=== PATIENT | female | born 1965 | race Two or more races ===

== ENCOUNTER 2016-11-08 13:51 | Emergency (ER) | payer OTHER ==
[~2016-11-08] VITALS: Ht 167.6 cm; Wt 78.0 kg
[2016-11-08] MEDS: MECLIZINE 25 MG TABLET PO ONE (14:13)
[2016-11-08 14:33] LABS: BASO % 1 % (0-3); EOS # 0.2 x10^3/uL (0.0-0.7); EOS % 3 % (0-3); HEMATOCRIT 45.4 % (36.0-47.0); HEMOGLOBIN 15.3 g/dL (12.0-15.5); LYMPH # 2.2 x10^3/uL (1.0-4.8); LYMPH % 33 % (24-48); MEAN CORPUSCULAR HEMOGLOBIN 30 pg (25-35); MEAN CORPUSCULAR HGB CONC 34 g/dL (31-37); MEAN CORPUSCULAR VOLUME 90 fL (79-100); MONO # 0.5 x10^3/uL (0.0-1.1); MONO % 7 % (0-9); NEUT # 3.8 x10^3uL (1.8-7.7); NEUT % 57 % (31-73); PLATELET COUNT 149 x10^3/uL (140-400); RED BLOOD COUNT 5.06 x10^6/uL (3.50-5.40); RED CELL DISTRIBUTION WIDTH 13.6 % (11.5-14.5); WHITE BLOOD COUNT 6.7 x10^3/uL (4.0-11.0)
[2016-11-08 14:46] LABS: ALBUMIN 4.1 g/dL (3.4-5.0); CREATININE 0.7 mg/dL (0.6-1.0); GFR 88.9; POTASSIUM 3.5 mmol/L (3.5-5.1); TOTAL BILIRUBIN 0.5 mg/dL (0.2-1.0); TOTAL PROTEIN 8.1 g/dL (6.4-8.2)
--- NOTE | 2016-11-08 14:46 | RAD ---
EXAM: Head CT without contrast. HISTORY: Dizziness. TECHNIQUE: Computed tomographic images of the head were obtained without contrast. COMPARISON: None. FINDINGS: There is no acute or subacute extra-axial or intraparenchymal hemorrhage. There is no mass effect or midline shift. There is no hydrocephalus. The sanchez-white matter differentiation pattern is intact. The visualized portions of the orbits, paranasal sinuses and mastoid air cells are unremarkable. No suspicious calvarial lesion is seen. IMPRESSION: No acute intracranial findings. PQRS Compliance Statement: One or more of the following individualized dose reduction techniques were utilized for this examination: 1. Automated exposure control 2. Adjustment of the mA and/or kV according to patient size 3. Use of iterative reconstruction technique
[2016-11-08] MEDS: LORAZEPAM 1 MG TABLET. PO ONE (15:00)
--- NOTE | 2016-11-08 15:19 | EKG ---
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
[2016-11-08 15:50] VITALS: BP 136/79
--- NOTE | 2016-11-08 16:09 | ED.ADGEN ---
Past History Past Medical History: Hypertension Past Surgical History: Alcohol Use: Rarely Drug Use: None Adult General Chief Complaint Chief Complaint Dizziness, bradycardia HPI HPI Patient is a 42-year-old female presents with dizziness described as room spinning running yesterday afternoon. Symptoms started probably and worse with position change and movement. There so she had with nausea, and ataxia. Patient denies walking to one side. Denies vomiting. Has had intermittent headaches times one week. No sinus pain, congestion, ear fullness, tinnitus or neck pain. Denies palpitations, shortness of breath and chest pain. No extremity weakness or loss of sensation. No medications. Patient was seen at PCPs office prior to ED arrival and was referred to the ED due to concern of bradycardia. Patient with office EKG with heart rate in the mid 40s. Patient is on blood pressure medication, but is not on negative chronotropic medications.. Review of Systems Review of Systems Review of symptoms as per history of present illness. All other review of symptoms negative. Current Medications Current Medications Current Medications Medications (Trade) Dose Ordered Sig/Bassam Start Time Stop Time Status Last Admin Dose Admin Lorazepam (Ativan) 1 mg 1X ONCE 11/08/16 15:00 11/08/16 15:01 DC 11/08/16 15:00 1 MG Meclizine HCl (Antivert) 50 mg 1X ONCE 11/08/16 14:30 11/08/16 14:32 DC 11/08/16 14:13 50 MG Allergies Allergies Allergies Coded Allergies Type Severity Reaction Last Updated Verified No Known Drug Allergies 11/08/16 No Physical Exam Physical Exam Constitutional: Well developed, well nourished, no acute distress, non-toxic appearance. HENT: Normocephalic, atraumatic, bilateral external ears normal, oropharynx moist, no oral exudates, nose normal. No sinus tenderness. Eyes: PERRLA, EOMI, conjunctiva normal, nystagmus with leftward gaze, fatigues. Neck: Normal range of motion, no tenderness. Cardiovascular: Regular cardiac, regular rhythm, no murmur. Lungs & Thorax: Bilateral breath sounds clear to auscultation. Abdomen: Bowel sounds normal, soft, no tenderness. Skin: Warm, dry. Back: No tenderness. Extremities: No tenderness. Neurologic: Alert and oriented X 3, normal motor function, normal sensory function, no focal deficits noted. Psychologic: Affect normal, judgement normal, mood normal. Current Patient Data Vital Signs Vital Signs Date Time Temp Pulse Resp B/P Pulse Ox O2 Delivery O2 Flow Rate FiO2 11/08/16 15:50 49 18 136/79 95 Room Air 11/08/16 14:03 97.7 Lab Results Laboratory Tests Test 11/08/16 14:15 White Blood Count 6.7x10^3/uL (4.0-11.0) Red Blood Count 5.06x10^6/uL (3.50-5.40) Hemoglobin 15.3g/dL (12.0-15.5) Hematocrit 45.4% (36.0-47.0) Mean Corpuscular Volume 90fL (79-100) Mean Corpuscular Hemoglobin 30pg (25-35) Mean Corpuscular Hemoglobin Concent 34g/dL (31-37) Red Cell Distribution Width 13.6% (11.5-14.5) Platelet Count 149x10^3/uL (140-400) Neutrophils (%) (Auto) 57% (31-73) Lymphocytes (%) (Auto) 33% (24-48) Monocytes (%) (Auto) 7% (0-9) Eosinophils (%) (Auto) 3% (0-3) Basophils (%) (Auto) 1% (0-3) Neutrophils # (Auto) 3.8x10^3uL (1.8-7.7) Lymphocytes # (Auto) 2.2x10^3/uL (1.0-4.8) Monocytes # (Auto) 0.5x10^3/uL (0.0-1.1) Eosinophils # (Auto) 0.2x10^3/uL (0.0-0.7) Basophils # (Auto) 0.0x10^3/uL (0.0-0.2) Sodium Level 140mmol/L (136-145) Potassium Level 3.5mmol/L (3.5-5.1) Chloride Level 101mmol/L (98-107) Carbon Dioxide Level 31mmol/L (21-32) Anion Gap 8 (6-14) Blood Urea Nitrogen 14mg/dL (7-20) Creatinine 0.7mg/dL (0.6-1.0) Estimated GFR (Cockcroft-Gault) 88.9 BUN/Creatinine Ratio 20 (6-20) Glucose Level 94mg/dL (70-99) Calcium Level 10.0mg/dL (8.5-10.1) Total Bilirubin 0.5mg/dL (0.2-1.0) Aspartate Amino Transferase (AST) 26U/L (15-37) Alanine Aminotransferase (ALT) 55U/L (14-59) Alkaline Phosphatase 124U/L (46-116) H Total Protein 8.1g/dL (6.4-8.2) Albumin 4.1g/dL (3.4-5.0) Albumin/Globulin Ratio 1.0 (1.0-1.7) EKG EKG [KJ: Sinus bradycardia, rate 40s, no acute ST-T wave changes.] Radiology/Procedures Radiology/Procedures [CT head: No acute disease.] Impressions: Vertigo with bradycardia Course & Med Decision Making Course & Med Decision Making Pertinent Labs and Imaging studies reviewed. (See chart for details) [CT head negative, no other neurologic symptoms present on exam. Nausea vertigo improved with meclizine and Ativan. Patient was walks with unassisted gait prior to departure. Heart rate and mid 50s to low 60s during ambulation. Will treat supportively with PCP follow-up in 2-3 days for reevaluation of bradycardia and further management. Return precautions reviewed.] Final Impression Final Impression [#1 vertigo #2 bradycardia] Problems: Dragon Disclaimer Dragon Disclaimer This electronic medical record was generated, in whole or in part, using a voice recognition dictation system. DANIELA WAKEFIELD DO Nov 08, 2016 16:09
== END 2016-11-08 15:57 | disposition home or self-care (01) ==
LOC: ER 13:51
DX: R42 Dizziness and giddiness (principal); R00.1 Bradycardia, unspecified; I10 Essential (primary) hypertension; R51 Headache; R27.0 Ataxia, unspecified; R11.0 Nausea
CPT/HCPCS: 36415; 70450; 80053; 84443; 85027; 93005; 99285; J8597